=== PATIENT | female | born 1965 | race Caucasian/White ===

== ENCOUNTER 2017-09-04 06:19 | Emergency (ER) | payer OTHER ==
[~2017-09-04] VITALS: Ht 162.6 cm; Wt 66.0 kg
[~2017-09-04 06:19] MED LIST: ABILIFY2 MG PO; ABILIFY5 MG PO; ADVIL200 MG; ALPRAZOLAM0.25 MG PO; AMITRIPTYLIN25 MG PO; BACLOFEN20 MG PO; BUPROPION HCL200 M1 PO; BUPROPION150 M1 PO; BUPROPION150 MG PO; BUPROPION300 MG PO; CIPROFLOXACN500 MG PO; DICLOFENAC50 MG PO; KLONOPIN0.5 MG PO; LIPITOR20 MG PO; METRONIDAZOL500 MG PO; NORCO1 TA1 PO; OMEPRAZOLE20 MG PO; PAXIL40 MG PO; PRAVASTATIN SOD20 MG PO; PRAVASTATIN SOD40 MG PO; PRILOSEC20 MG OR; PROAIR HFA IN; TRAZODONE50 MG PO
[2017-09-04] MEDS ORDERED: MOTRIN400 MG PO (06:49)
[2017-09-04 07:08] VITALS: BP 164/86
== END 2017-09-04 07:08 | disposition home or self-care (01) | DRG 605 ==
LOC: ED 06:19
PROC: 2W3JX1Z Immobilization of Right Finger using Splint (ICD-10-PCS; principal; 2017-09-04)
DX: S60.051A Contusion of right little finger without damage to nail, initial encounter (principal); M25.541 Pain in joints of right hand; W22.8XXA Striking against or struck by other objects, initial encounter; Y93.K1 Activity, walking an animal; Y92.009 Unspecified place in unspecified non-institutional (private) residence as the place of occurrence of the external cause

== ENCOUNTER 2017-12-28 19:38 | Emergency (ER) | payer OTHER ==
[~2017-12-28] VITALS: Ht 162.6 cm; Wt 68.0 kg
[~2017-12-28 19:38] MED LIST changes: +MOTRIN400 MG PO
[2017-12-28] MEDS ORDERED: LOPID600 MG PO (19:52)
[2017-12-28] MEDS ORDERED: BACTRIM DS1 TAB PO (19:53)
[2017-12-28] MEDS ORDERED: BACLOFEN20 MG PO (19:55)
[2017-12-28] MEDS ORDERED: CLONAZEP ODT1 MG PO (19:56)
[2017-12-28] MEDS ORDERED: OXYBUTYNIN5 MG PO (19:57)
[2017-12-28 20:42] LABS: URINE BILIRUBIN - DIPSTICK NEGATIVE (NEGATIVE); URINE BLOOD DIPSTICK MODERATE (NEGATIVE); URINE COLOR YELLOW; URINE GLUCOSE - DIPSTICK NEGATIVE (NEGATIVE); URINE KETONE NEGATIVE (NEGATIVE); URINE NITRITE - DIPSTICK NEGATIVE (Negative); URINE PROTEIN - DIPSTICK 30 mg/dL (NEG-TRACE); URINE SPECIFIC GRAVITY 1.015; URINE UROBILINOGEN - DIPSTICK 0.2 E.U./dL (0.2)
[2017-12-28 20:45] LABS: URINE CLARITY CLOUDY; URINE LEUK ESTERASE LARGE (NEGATIVE)
[2017-12-28 20:48] LABS: URINE BACTERIA FEW hpf; URINE SQUAMOUS EPITHELIAL CELL FEW EPI/hpf (0-FEW); URINE WBC TNTC WBC/hpf (0-5)
[2017-12-28] MEDS ORDERED: CIPROFLOXACIN250 MG PO (20:54)
[2017-12-28 21:02] VITALS: BP 142/75
== END 2017-12-28 21:17 | disposition home or self-care (01) | DRG 690 ==
LOC: ED 19:38
PROVIDERS: Family Medicine
DX: N30.00 Acute cystitis without hematuria (principal); F17.210 Nicotine dependence, cigarettes, uncomplicated; B96.20 Unspecified Escherichia coli [E. coli] as the cause of diseases classified elsewhere

== ENCOUNTER 2018-04-20 08:17 | Emergency (ER) | payer OTHER ==
[~2018-04-20] VITALS: Ht 162.6 cm; Wt 65.0 kg
[~2018-04-20 08:17] MED LIST changes: +BACTRIM DS1 TAB PO; +CIPROFLOXACIN250 MG PO; +CLONAZEP ODT1 MG PO; +LOPID600 MG PO; +OXYBUTYNIN5 MG PO
[2018-04-20 09:06] LABS: HEMATOCRIT 44.3 % (37.0-47.0); HEMOGLOBIN 15.4 g/dl (12.0-16.0); IMMATURE GRANULOCYTES 0.3 % (0.0-5.0); MEAN CELL VOLUME 97.8 fL CALC (80.0-100.0); MEAN CORPUSCULAR HGB CONC 34.8 g/L CALC (32.0-36.0); NEUT# 4.25 thou/uL (2.00-7.15); RED BLOOD COUNT 4.53 mill/uL (4.20-5.60); RED CELL DISTRI WIDTH 13.1 % (11.5-15.5)
[2018-04-20 09:28] LABS: INFLUENZA A NONE DETECTED (NONE DETECT); INFLUENZA B NONE DETECTED (NONE DETECT)
[2018-04-20 09:32] LABS: ALBUMIN 3.9 g/dL (3.2-5.0); ALKALINE PHOSPHATASE 73 u/l (38-126); BILIRUBIN, TOTAL 0.6 mg/dL (0.0-1.4); BUN 11 mg/dL (7-17); BUN/CREATININE RATIO 18 (12-20 (CALC)); CARBON DIOXIDE 25 mmol/l (22-30); CHLORIDE 105 mmol/l (95-108); CREATININE 0.6 mg/dL (0.5-1.0); GFR > 60 ML/MIN (>=60 (CALC)); GFR FOR AFR.AMER. > 60 ML/MIN (>=60 (CALC)); LIPASE 78 u/l (23-300); POTASSIUM 3.2 mmol/l (3.5-5.1); SGOT/AST 38 u/l (14-36); TOTAL PROTEIN 7.2 g/dL (6.3-8.2)
[2018-04-20 09:39] LABS: ANION GAP 11 (6-22 (CALC)); SODIUM 138 mmol/l (137-146)
[2018-04-20] MEDS ORDERED: K-TAB20 MEQ PO (11:12)
[2018-04-20] MEDS ORDERED: ONDANSETRON4 MG PO (11:12)
[2018-04-20 11:44] VITALS: BP 140/72
== END 2018-04-20 11:53 | disposition home or self-care (01) | DRG 392 ==
LOC: ED 08:17
PROVIDERS: Family Medicine
DX: K52.9 Noninfective gastroenteritis and colitis, unspecified (principal); R11.2 Nausea with vomiting, unspecified; R19.7 Diarrhea, unspecified

== ENCOUNTER 2018-07-29 12:10 | Emergency (ER) | payer OTHER ==
[~2018-07-29] VITALS: Ht 162.6 cm; Wt 65.0 kg
[~2018-07-29 12:10] MED LIST changes: +K-TAB20 MEQ PO; +ONDANSETRON4 MG PO
[2018-07-29 13:16] LABS: ANION GAP 11 (6-22 (CALC)); BUN 14 mg/dL (7-17); BUN/CREATININE RATIO 17 (12-20 (CALC)); CARBON DIOXIDE 27 mmol/l (22-30); CHLORIDE 106 mmol/l (95-108); CREATININE 0.8 mg/dL (0.5-1.0); GFR > 60 ML/MIN (>=60 (CALC)); GFR FOR AFR.AMER. > 60 ML/MIN (>=60 (CALC)); POTASSIUM 3.5 mmol/l (3.5-5.1); SODIUM 141 mmol/l (137-146)
[2018-07-29 13:30] LABS: HEMATOCRIT 46.7 % (37.0-47.0); HEMOGLOBIN 16.1 g/dl (12.0-16.0); IMMATURE GRANULOCYTES 0.4 % (0.0-5.0); MEAN CELL VOLUME 98.5 fL CALC (80.0-100.0); MEAN CORPUSCULAR HGB CONC 34.5 g/L CALC (32.0-36.0); NEUT# 7.59 thou/uL (2.00-7.15); RED BLOOD COUNT 4.74 mill/uL (4.20-5.60); RED CELL DISTRI WIDTH 13.2 % (11.5-15.5)
[2018-07-29 14:17] LABS: URINE BILIRUBIN - DIPSTICK NEGATIVE (NEGATIVE); URINE BLOOD DIPSTICK NEGATIVE (NEGATIVE); URINE COLOR YELLOW; URINE GLUCOSE - DIPSTICK NEGATIVE (NEGATIVE); URINE KETONE NEGATIVE (NEGATIVE); URINE LEUK ESTERASE NEGATIVE (NEGATIVE); URINE NITRITE - DIPSTICK NEGATIVE (Negative); URINE PROTEIN - DIPSTICK NEGATIVE (NEG-TRACE); URINE UROBILINOGEN - DIPSTICK 0.2 E.U./dL (0.2)
[2018-07-29 16:01] VITALS: BP 126/61
== END 2018-07-29 15:45 | disposition home or self-care (01) | DRG 312 ==
LOC: ED 12:10
PROVIDERS: Family Medicine
DX: R55 Syncope and collapse (principal); S00.511A Abrasion of lip, initial encounter; S80.212A Abrasion, left knee, initial encounter; R42 Dizziness and giddiness; F17.210 Nicotine dependence, cigarettes, uncomplicated; Y92.89 Other specified places as the place of occurrence of the external cause; Y99.0 Civilian activity done for income or pay

== ENCOUNTER 2019-04-02 16:28 | Emergency (ER) | payer OTHER ==
[~2019-04-02] VITALS: Ht 162.6 cm; Wt 63.0 kg
[2019-04-02] MEDS ORDERED: HYDROCO/APAP1 TA9 PO (18:46)
[2019-04-02 18:58] VITALS: BP 148/65
== END 2019-04-02 19:19 | disposition home or self-care (01) | DRG 536 ==
LOC: ED 16:28
DX: S32.592A Other specified fracture of left pubis, initial encounter for closed fracture (principal); W23.0XXA Caught, crushed, jammed, or pinched between moving objects, initial encounter